=== PATIENT | male | born 1950 | race Caucasian/White ===

== ENCOUNTER 2017-11-27 14:55 | Emergency (ER) | payer MEDICARE, OTHER ==
[2017-11-27] MEDS ORDERED: IPRATROPIUM-ALBUTEROL 3 ML NEB INHALATION STA (17:07)
[2017-11-27] MEDS ORDERED: methylPREDNISolone SOD SUCCI 125 MG/2 ML VIAL IV STA (17:07)
--- NOTE | 2017-11-27 17:41 | ED ---
General Adult HPI - General Chief complaint: Recheck/Abnormal Lab/Rx Stated complaint: Sob Time Seen by Provider: 11/27/17 16:22 Source: patient Mode of arrival: ambulatory Limitations: no limitations - History of Present Illness Initial comments: 67-year-old male patient presents to the emergency department today for complaints of facial swelling. Patient states that symptoms started yesterday with left-sided facial swelling, states it has progressed over to the right side. He states he woke this morning and his right eye was completely swollen shut. He states he has been taking ibuprofen and Benadryl all day today without relief of symptoms. He states that he thinks he may have had a fever a couple of days ago. Patient reports that he has had extensive surgery to his face including sinus reconstruction on the left. Patient states that he is also been coughing and is concerned he has pneumonia. He states he is coughing up clear sputum. He states he has have some mild nasal congestion he has had these symptoms for about a week. Patient denies any recent shortness breath, chest pain, abdominal pain, nausea, vomiting, diarrhea, constipation, back pain , numbness, tingling, dizziness, weakness, hematuria, dysuria, urinary urgency, urinary frequency, headache, visual changes, or any other complaints. - Related Data Home Medications Medication Instructions Recorded Confirmed Budesonide/Formoterol Fumarate 1 puff PO BID 11/27/17 11/27/17 [Symbicort 160-4.5 Mcg Inhaler] Cholecalciferol (Vitamin D3) 4,000 unit PO DAILY 11/27/17 11/27/17 [Vitamin D3] DULoxetine HCL [Cymbalta] 60 mg PO BID 11/27/17 11/27/17 Fluticasone Nasal [place] [Flonase 2 spr EA NOSTRIL DAILY 11/27/17 11/27/17 Nasal [place]] Ibuprofen [Motrin] 800 mg PO Q6HR PRN 11/27/17 11/27/17 Montelukast [Singulair] 10 mg PO HS 11/27/17 11/27/17 Tiotropium [place] [Spiriva] 1 cap INHALATION DAILY 11/27/17 11/27/17 diphenhydrAMINE [Benadryl] 50 mg PO QID PRN 11/27/17 11/27/17 Previous Rx's Medication Instructions Recorded predniSONE 50 mg PO DAILY #5 tablet 11/27/17 Allergies Allergy/AdvReac Type Severity Reaction Status Date / Time bee venom protein (honey bee) Allergy Unknown Verified 11/27/17 16:56 lithium Allergy Unknown Verified 11/27/17 16:56 Review of Systems ROS Statement: Those systems with pertinent positive or pertinent negative responses have been documented in the HPI. ROS Other: All systems not noted in ROS Statement are negative. Past Medical History Past Medical History: COPD History of Any Multi-Drug Resistant Organisms: None Reported Additional Past Surgical History / Comment(s): facial reconstruction Past Psychological History: Anxiety, Depression, PTSD Smoking Status: Current some day smoker Past Alcohol Use History: None Reported Past Drug Use History: None Reported General Exam Limitations: no limitations General appearance: alert, in no apparent distress, other (Physical well- developed, well-nourished adult male patient in no acute distress. Vital signs upon presentation were temperature 99.4F, pulse 98, respirations 20, blood pressure 129/75, pulse ox 98% on room air.) Eye exam: Present: PERRL, EOMI, periorbital swelling (Right lower lid swelling, erythematous). Absent: normal appearance, scleral icterus, conjunctival injection ENT exam: Present: normal exam, normal oropharynx, mucous membranes moist, TM's normal bilaterally, other (Right maxillary swelling and erythema extending over the nasal bridge) Neck exam: Present: normal inspection. Absent: tenderness, meningismus, lymphadenopathy Respiratory exam: Present: wheezes (Diffuse expiratory wheezing throughout all posterior lung moreno), other (Congested cough noted during exam). Absent: normal lung sounds bilaterally, respiratory distress, rales, rhonchi, stridor Cardiovascular Exam: Present: regular rate, normal rhythm, normal heart sounds. Absent: systolic murmur, diastolic murmur, rubs, gallop, clicks GI/Abdominal exam: Present: soft, normal bowel sounds. Absent: distended, tenderness, guarding, rebound, rigid Neurological exam: Present: alert, oriented X3, CN II-XII intact Psychiatric exam: Present: normal affect, normal mood Skin exam: Present: warm, dry, intact, normal color. Absent: rash Course Vital Signs 11/27/17 11/27/17 11/27/17 15:22 17:36 17:45 Temperature 99.4 F Pulse Rate 98 92 94 Respiratory 20 Rate Blood Pressure 129/75 O2 Sat by Pulse 98 Oximetry 11/27/17 11/27/17 18:10 19:13 Temperature 98.9 F Pulse Rate 70 84 Respiratory 20 18 Rate Blood Pressure 127/70 124/82 O2 Sat by Pulse 96 99 Oximetry Medical Decision Making - Medical Decision Making 67 year-old male patient presented to the emergency department today for evaluation of facial swelling. He is also complaining of cough with sputum production. Physical examination did reveal some swelling to the right side of the face including the lower eyelid. Lungs did exhibit diffuse expiratory wheezing throughout all posterior lung moreno. Patient does have inhalers at home. It is felt that the facial swelling is more related to ALLERGIC reaction rather than cellulitis due to the migratory pattern of the swelling. He reported it started initially in his left ear, traveled across his face to the right side. The left side has no swelling at this time. Patient was given 125 mg a slight Medrol IV volume in the department. The swelling did improve at time of discharge. Patient will be given a prescription for prednisone 50 mg for 5 days to treat both the ALLERGIC reaction and acute bronchitis. He is instructed to continue using his inhalers. He is instructed to follow-up with his primary care physician for recheck in 1-2 days. Return parameters were discussed in detail. He verbalizes understanding and agrees with this plan. - Lab Data Result diagrams: 11/27/17 17:30 11/27/17 17:30 Lab Results 11/27/17 11/27/17 Range/Units 17:30 17:30 WBC 8.9 (3.8-10.6) k/uL RBC 4.48 (4.30-5.90) m/uL Hgb 14.3 (13.0-17.5) gm/dL Hct 42.9 (39.0-53.0) % MCV 95.8 (80.0-100.0) fL MCH 31.9 (25.0-35.0) pg MCHC 33.3 (31.0-37.0) g/dL RDW 13.0 (11.5-15.5) % Plt Count 274 (150-450) k/uL Neutrophils % 66 % Lymphocytes % 24 % Monocytes % 4 % Eosinophils % 3 % Basophils % 1 % Neutrophils # 5.9 (1.3-7.7) k/uL Lymphocytes # 2.1 (1.0-4.8) k/uL Monocytes # 0.4 (0-1.0) k/uL Eosinophils # 0.3 (0-0.7) k/uL Basophils # 0.1 (0-0.2) k/uL Sodium 140 (137-145) mmol/L Potassium 4.5 (3.5-5.1) mmol/L Chloride 100 (98-107) mmol/L Carbon Dioxide 26 (22-30) mmol/L Anion Gap 14 mmol/L BUN 11 (9-20) mg/dL Creatinine 1.00 (0.66-1.25) mg/dL Est GFR (MDRD) Af Amer >60 (>60 ml/min/1.73 sqM) Est GFR (MDRD) Non-Af >60 (>60 ml/min/1.73 sqM) Glucose 102 H (74-99) mg/dL Calcium 9.4 (8.4-10.2) mg/dL Total Bilirubin 0.5 (0.2-1.3) mg/dL AST 29 (17-59) U/L ALT 28 (21-72) U/L Alkaline Phosphatase 74 (38-126) U/L Total Protein 7.2 (6.3-8.2) g/dL Albumin 4.4 (3.5-5.0) g/dL - Radiology Data Radiology results: report reviewed, image reviewed Two-view x-ray of the chest shows no focal airspace opacity, pleural effusion, or pneumothorax. The cardiac silhouette size is within normal limits. The osseous structures are intact. Flattening of the diaphragm is noted which is felt to be due to eczema. Impression by Dr. Jack shows no acute cardiopulmonary process. Disposition Clinical Impression: Swelling of right side of face, Acute bronchitis Disposition: HOME SELF-CARE Condition: Good Instructions: Acute Bronchitis (ED), General Allergic Reaction (ED) Additional Instructions: Continue taking Benadryl every 6 hours. Complete steroid prescription in full. Closely monitor your blood sugars as steroids can increase your numbers. Follow-up with your primary care physician for recheck in 1-2 days. Return here immediate for any new, worsening, or concerning symptoms. Prescriptions: predniSONE 50 mg PO DAILY #5 tablet Referrals: Es Valle MD [Primary Care Provider] - 1-2 days Time of Disposition: 18:56
[2017-11-27 17:45] LABS: Basophils # (A) 0.1 k/uL (0-0.2); Basophils % (A) 1 %; Eosinophils # (A) 0.3 k/uL (0-0.7); Eosinophils % (A) 3 %; HCT 42.9 % (39.0-53.0); HGB 14.3 gm/dL (13.0-17.5); Lymphocytes # (A) 2.1 k/uL (1.0-4.8); Lymphocytes % (A) 24 %; MCH 31.9 pg (25.0-35.0); MCHC 33.3 g/dL (31.0-37.0); MCV 95.8 fL (80.0-100.0); Mean Platelet Volume 6.5; Monocytes # (A) 0.4 k/uL (0-1.0); Monocytes % (A) 4 %; Neutrophils # (A) 5.9 k/uL (1.3-7.7); Neutrophils % (A) 66 %; Platelet Count 274 k/uL (150-450); RBC 4.48 m/uL (4.30-5.90); WBC 8.9 k/uL (3.8-10.6)
[2017-11-27 17:50] LABS: ALT 28 U/L (21-72); AST 29 U/L (17-59); Albumin 4.4 g/dL (3.5-5.0); Alkaline Phosphatase 74 U/L (38-126); Anion Gap 14 mmol/L; Blood Urea Nitrogen 11 mg/dL (9-20); Calcium 9.4 mg/dL (8.4-10.2); Carbon Dioxide 26 mmol/L (22-30); Chloride 100 mmol/L (98-107); Glucose 102 mg/dL (74-99); Potassium 4.5 mmol/L (3.5-5.1); Sodium 140 mmol/L (137-145); Total Bilirubin 0.5 mg/dL (0.2-1.3); Total Protein 7.2 g/dL (6.3-8.2)
--- NOTE | 2017-11-27 18:19 | XR ---
EXAMINATION TYPE: XR chest 2V DATE OF EXAM: 11/27/2017 COMPARISON: NONE HISTORY: Shortness of breath TECHNIQUE: Frontal and lateral views of the chest are obtained. FINDINGS: There is no focal air space opacity, pleural effusion, or pneumothorax seen. The cardiac silhouette size is within normal limits. The osseous structures are intact. Flattening of the diaph ragms is noted which is felt to be due to emphysema. IMPRESSION: No acute cardiopulmonary process.
[2017-11-27 19:14] VITALS: BP 124/82; PULSE 84; RESP 18; TEMP 98.9
== END 2017-11-27 19:13 | disposition home or self-care (01) ==
LOC: EC 14:55
DX: R22.0 Localized swelling, mass and lump, head (principal); J20.9 Acute bronchitis, unspecified; J44.9 Chronic obstructive pulmonary disease, unspecified; F32.9 Major depressive disorder, single episode, unspecified; F41.9 Anxiety disorder, unspecified; F17.200 Nicotine dependence, unspecified, uncomplicated; Z91.048 Other nonmedicinal substance allergy status; Z91.030 Bee allergy status; Z79.51 Long term (current) use of inhaled steroids; Z79.899 Other long term (current) drug therapy
CPT/HCPCS: 36415; 94640; 80053; 85025; 87040; 71046; 99285; 96374; J2930